=== PATIENT | male | born 1980 | race Caucasian/White ===

== ENCOUNTER 2018-03-25 12:09 | Inpatient (IN) | payer OTHER ==
[2018-03-25 16:16] LABS: ADD MAN DIFF? NO
[2018-03-25 16:18] LABS: WHITE BLOOD COUNT 10.9 10^3/ul (4.8-10.8)
[2018-03-25 16:18] LABS: BASOPHILS % 0.3 % (0.0-2.0); EOSINOPHILS # 0.1 10^3/ul (0.0-0.5); HEMATOCRIT 36.9 % (42.0-52.0); HEMOGLOBIN 12.5 g/dl (14.0-18.0); LYMPHOCYTES # 0.9 10^3/ul (0.8-2.9); LYMPHOCYTES % 8.4 % (15.0-51.0); MEAN CORPUSCULAR HEMOGLOBIN 33.7 pg (29.0-33.0); MEAN CORPUSCULAR HGB CONC 33.9 g/dl (32.0-37.0); MEAN CORPUSCULAR VOLUME 99.5 fl (82.0-101.0); MEAN PLATELET VOLUME 9.8 fl (7.4-10.4); MONOCYTE # 0.8 10^3/ul (0.3-0.9); MONOCYTES % 7.5 % (0.0-11.0); NEUTROPHILS % 82.4 % (39.0-77.0); PLATELET COUNT 255 10^3/UL (140-415); RED BLOOD COUNT 3.71 10^6/ul (4.70-6.10); RED CELL DISTRIBUTION WIDTH 12.9 % (11.5-14.5)
[2018-03-25 16:35] LABS: ANION GAP 19 (8-16); BLOOD UREA NITROGEN 78 mg/dl (7-20); CARBON DIOXIDE 28 mmol/L (21-31); CHLORIDE 104 mmol/L (97-110); CREATININE 12.94 mg/dl (0.61-1.24); GLUCOSE 93 mg/dl (70-220); SODIUM 146 mmol/L (135-144)
[2018-03-25 16:39] LABS: INR 0.93; PROTIME 12.6 Sec (11.9-14.9)
[2018-03-25 16:40] LABS: PARTIAL THROMBOPLASTIN TIME 31.2 Sec (25.0-35.0)
[2018-03-25] MEDS ORDERED: ONDANSETRON 4 MG INJ IV ×2 (17:30→18:00)
[2018-03-25] MEDS ORDERED: ACETAMINOPHEN 325 MG TAB PO (17:30)
[2018-03-25] MEDS ORDERED: ONDANSETRON 4 MG TAB PO ×2 (18:00)
[2018-03-25] MEDS ORDERED: NA PHOSPHATE/BIPHOS 133 ML ENEMA PR (18:00)
[2018-03-25] MEDS ORDERED: HYDROCODONE/APAP (5/325) TAB PO (18:00)
[2018-03-25] MEDS ORDERED: LORAZEPAM 1 MG TAB PO (18:00)
[2018-03-25] MEDS ORDERED: MAGNESIUM HYDROXIDE 30ML CUP PO (18:00)
[2018-03-25] MEDS ORDERED: NACL 0.9% 3 ML SYG IV (18:00)
[2018-03-25] MEDS ORDERED: METOCLOPRAMIDE 10 MG INJ IV (18:00)
[2018-03-25] MEDS ORDERED: BISACODYL 10 MG SUPP PR (18:00)
[2018-03-25] MEDS ORDERED: SEVELAMER CARBONATE 0.8 GM PKT PO (18:00)
[2018-03-25] MEDS ORDERED: BISACODYL (EC) 5 MG TAB PO (18:00)
[2018-03-25] MEDS ORDERED: DOCUSATE SODIUM 100 MG CAP PO (18:00)
[2018-03-25] MEDS ORDERED: hydrOXYzine HCL 25 MG TAB PO (18:00)
[2018-03-25] MEDS: SEVELAMER CARBONATE 0.8 GM PKT PO (19:35)
[2018-03-25] MEDS: HEPARIN 5,000 UNIT/0.5 ML VIAL SC (21:46)
[2018-03-26 05:47] LABS: ADD MAN DIFF? NO
[2018-03-26 05:51] LABS: WHITE BLOOD COUNT 8.6 10^3/ul (4.8-10.8)
[2018-03-26 05:51] LABS: BASOPHILS % 0.4 % (0.0-2.0); EOSINOPHILS # 0.1 10^3/ul (0.0-0.5); EOSINOPHILS % 1.5 % (0.0-7.0); HEMATOCRIT 30.5 % (42.0-52.0); HEMOGLOBIN 10.3 g/dl (14.0-18.0); LYMPHOCYTES # 0.8 10^3/ul (0.8-2.9); LYMPHOCYTES % 9.2 % (15.0-51.0); MEAN CORPUSCULAR HEMOGLOBIN 33.6 pg (29.0-33.0); MEAN CORPUSCULAR HGB CONC 33.8 g/dl (32.0-37.0); MEAN CORPUSCULAR VOLUME 99.3 fl (82.0-101.0); MEAN PLATELET VOLUME 10.5 fl (7.4-10.4); MONOCYTE # 0.8 10^3/ul (0.3-0.9); MONOCYTES % 8.8 % (0.0-11.0); NEUTROPHIL # 6.9 10^3/ul (1.6-7.5); NEUTROPHILS % 79.9 % (39.0-77.0); PLATELET COUNT 195 10^3/UL (140-415); RED BLOOD COUNT 3.07 10^6/ul (4.70-6.10); RED CELL DISTRIBUTION WIDTH 12.8 % (11.5-14.5)
[2018-03-26 07:41] LABS: ANION GAP 17 (8-16); BLOOD UREA NITROGEN 84 mg/dl (7-20); CALCIUM 8.4 mg/dl (8.4-10.2); CARBON DIOXIDE 22 mmol/L (21-31); CHLORIDE 109 mmol/L (97-110); CREATININE 13.43 mg/dl (0.61-1.24); GLUCOSE 84 mg/dl (70-220); MAGNESIUM 2.4 mg/dl (1.7-2.5); PHOSPHORUS 4.9 mg/dl (2.5-4.9); POTASSIUM 4.8 mmol/L (3.5-5.1); SODIUM 143 mmol/L (135-144)
[2018-03-26] MEDS: SEVELAMER CARBONATE 0.8 GM PKT PO ×3 (08:21→18:00)
[2018-03-26] MEDS: predniSONE 5 MG TAB PO (08:22)
[2018-03-26] MEDS: MULTIVIT/CA CARB/B CMPLX/FA TAB PO (08:22)
[2018-03-26] MEDS: ACETAMINOPHEN 325 MG TAB PO (08:22)
[2018-03-26] MEDS: FUROSEMIDE 40 MG TAB PO (08:24)
[2018-03-26] MEDS: FOLIC ACID 1 MG TAB PO (08:24)
[2018-03-26] MEDS: LOSARTAN 50 MG TAB PO (12:42)
[2018-03-26] MEDS: HEPARIN 5,000 UNIT/0.5 ML VIAL SC ×2 (12:43→20:26)
[2018-03-26] MEDS ORDERED: LIDOCAINE 1% (MDV) 20 ML INJ (17:40)
[2018-03-26] MEDS ORDERED: HEPARIN 1000 UNITS/ML 10 ML INJ (17:41)
[2018-03-26] MEDS ORDERED: CEFAZOLIN 1 GM/50 ML (PMX) 50 ML IVPB (17:50)
[2018-03-26] MEDS ORDERED: IODIXANOL LOCM 50 ML BTL (17:59)
[2018-03-27 01:29] LABS: HEPATITIS B SURFACE ANTIGEN NEGATIVE (NEGATIVE)
[2018-03-27 01:47] LABS: HEPATITIS B SURFACE ANTIBODY POSITIVE (NEGATIVE)
[2018-03-27 06:33] LABS: ANION GAP 17 (8-16); BLOOD UREA NITROGEN 40 mg/dl (7-20); CARBON DIOXIDE 28 mmol/L (21-31); CHLORIDE 101 mmol/L (97-110); CREATININE 8.38 mg/dl (0.61-1.24); GLUCOSE 113 mg/dl (70-220); PHOSPHORUS 3.6 mg/dl (2.5-4.9); POTASSIUM 4.1 mmol/L (3.5-5.1); SODIUM 142 mmol/L (135-144)
[2018-03-27] MEDS: SEVELAMER CARBONATE 0.8 GM PKT PO (08:28)
[2018-03-27] MEDS: FUROSEMIDE 40 MG TAB PO (08:33)
[2018-03-27] MEDS: FOLIC ACID 1 MG TAB PO (08:34)
[2018-03-27] MEDS: MULTIVIT/CA CARB/B CMPLX/FA TAB PO (08:34)
[2018-03-27] MEDS: predniSONE 5 MG TAB PO (08:34)
[2018-03-27] MEDS: LOSARTAN 50 MG TAB PO (08:36)
[2018-03-27] MEDS: HEPARIN 5,000 UNIT/0.5 ML VIAL SC (08:42)
== END 2018-03-27 09:20 | disposition home or self-care (01) | DRG 270 ==
LOC: E/R 12:09 → MS2 17:25
PROC: 0J2TXYZ Change Other Device in Trunk Subcutaneous Tissue and Fascia, External Approach (ICD-10-PCS; principal; 2018-03-26 17:30)
PROC: 05C43ZZ Extirpation of Matter from Left Innominate Vein, Percutaneous Approach (ICD-10-PCS; 2018-03-26 17:30)
PROC: 05CY3ZZ Extirpation of Matter from Upper Vein, Percutaneous Approach (ICD-10-PCS; 2018-03-26 17:30)
PROC: 05C63ZZ Extirpation of Matter from Left Subclavian Vein, Percutaneous Approach (ICD-10-PCS; 2018-03-26 17:30)
PROC: 05CN3ZZ Extirpation of Matter from Left Internal Jugular Vein, Percutaneous Approach (ICD-10-PCS; 2018-03-26 17:30)
DX: T82.41XA Breakdown (mechanical) of vascular dialysis catheter, initial encounter (principal); N18.6 End stage renal disease; I87.1 Compression of vein; I12.0 Hypertensive chronic kidney disease with stage 5 chronic kidney disease or end stage renal disease; Z99.2 Dependence on renal dialysis; D72.823 Leukemoid reaction; D64.9 Anemia, unspecified
CPT/HCPCS: 36415; 37248; 37249; 75822; 80048; 83735; 84100; 85025; 85610; 85730; 86706; 87081; 87340; 90935; 93923; 93970; 99285-25